=== PATIENT | male | born 1965 | race Caucasian/White ===

== ENCOUNTER 2019-02-27 07:52 | Inpatient (IN) ==
[~2019-02-27 07:52] MED LIST: Bacitracin 50,000 UNIT, Polymyxin B Sulfate 500,000 UNIT, Sodium Chloride IRRigation 1,... IR ONE
--- NOTE | 2019-02-27 08:32 | Anesthesia Evaluation PreOp ---
Date of Encounter: 02/27/19 Time of Encounter: 08:30 - Past History Planned Operation: PLIF L4-S1 Cardiac History: HTN, Hyperlipidemia, Cardiac Surgery (PFO CLOSURE POST CVS) Pulmonary History: Denies Any Significant HX PAPER FOLDER History: CVA Other Medical History: Diabetes Type II, GERD, Other (OBESITY) Anesthesia History: No Prior Anesthetic Complications, Past Anesthesia Alcohol Use: none Drug use: none Medications and Allergies Acetaminophen [Tylenol] 1,000 mg PO Q6HR PRN #90 tablet 01/08/18 [Rx] Aspirin [Adult Aspirin Regimen] 81 mg PO DAILY 01/08/18 [History] Atorvastatin Calcium [Lipitor] DAILY 01/08/18 [History] Glimepiride [Amaryl] 8 mg DAILY 01/08/18 [History] Levothyroxine Sodium [Levoxyl] 75 mcg PO DAILY 01/08/18 [History] Metformin HCl [Metformin ER Gastric] BID 01/08/18 [History] Omeprazole [PriLOSEC] DAILY 01/08/18 [History] hydroCHLOROthiazide [Hydrochlorothiazide] 25 mg PO DAILY 01/08/18 [History] Allergy/AdvReac Type Severity Reaction Status Date / Time Penicillins Allergy Hives Verified 01/08/18 07:55 - Meds/Allergy Pre-op Review Medications Reviewed: Yes Allergies Reviewed: Yes Beta Blockers on Current Med List: No Anesthesia Results - Labs Laboratory Tests 02/20/19 02/20/19 02/20/19 10:30 10:30 10:30 Hgb 13.4 Plt Count 238 Potassium 4.2 Creatinine 0.69 L Est GFR (Non-Af Amer) > 60 Hemoglobin A1c 7.3 H Anesthesia Exam Vital Signs/O2 Sat/Glucose, Most Recent Temp Pulse Resp BP Pulse Ox 98.7 F 95 18 137/86 96 02/27/19 08:37 02/27/19 08:37 02/27/19 08:37 02/27/19 08:37 02/27/19 08:37 Blood Glucose* 142 Weight: 113 KG - BMI 32 NPO (# of Hours): 8 - HEENT Mallampati: II Teeth: Normal - PAPER FOLDER PAPER FOLDER Motor: Deficit RLE (ARTURO EAKNESS TOE FLEXIN, EXTENSION. L>R), Deficit LLE - Cardiac Rhythm: Regular - Pulmonary Breath Sounds: bilateral Clear Anesthesia Assess/Plan ASA Score: 3 Anesthetic Plan: General Monitoring Plan: Standard Monitors Recovery Plan: PACU
[2019-02-27] MEDS ORDERED: Clindamycin 900 MG/50 ML 900 MG/50 ML IV.SOLN IVPB ONE (08:33)
[2019-02-27] MEDS ORDERED: Albuterol 2.5 MG/3 ML NEBULIZER IH ONE (08:33)
[2019-02-27] MEDS ORDERED: Gabapentin 300 MG CAPSULE PO ONE (08:35)
[2019-02-27] MEDS ORDERED: Ipratropium/Albuterol Neb 3 ML IH PRN (08:35)
[2019-02-27] MEDS ORDERED: traMADol 50 MG TABLET PO ONE (08:35)
[2019-02-27] MEDS ORDERED: Acetaminophen IV 1,000 MG/100 ML INFUS..BTL IVPB ONE (08:35)
[2019-02-27] MEDS: Ringers Solution, Lactated 1,000 ML IVC SCH ×2 (09:01→17:07)
[2019-02-27] MEDS ORDERED: Ondansetron 4 MG/2 ML VIAL ONE (10:13)
[2019-02-27] MEDS ORDERED: Dexamethasone 4 MG/ML VIAL ONE (10:13)
[2019-02-27] MEDS ORDERED: *HR* Midazolam HCl 2 MG/2 ML VIAL ONE (10:13)
[2019-02-27] MEDS ORDERED: *HR* FentaNYL (PF) 100 MCG/2 ML VIAL ONE (10:13)
[2019-02-27] MEDS ORDERED: *HR* Propofol 200 MG/20 ML VIAL IVP ONE (10:13)
[2019-02-27] MEDS ORDERED: *HR* Rocuronium Bromide 50 MG/5 ML VIAL ONE (10:13)
[2019-02-27] MEDS ORDERED: Lidocaine -MPF 2% 2 ML VIAL ONE (10:13)
[2019-02-27] MEDS ORDERED: *HR* Succinylcholine 200 MG/10 ML VIAL IVP ONE (10:13)
[2019-02-27] MEDS ORDERED: Lidocaine HCL 4 ML Topical Solution (Laryng-O-Jet Kit Sterile Pak) TP ONE ×2 (10:16→15:11)
[2019-02-27] MEDS ORDERED: *HR* Remifentanil 1 MG VIAL IVP ONE ×2 (10:26→15:04)
--- NOTE | 2019-02-27 11:33 | History & Physical Report ---
Date of Encounter: 02/27/19 Time of Encounter: 11:32 24 Hour HP Update - Instructions Instructions: If the History and Physical is less than 30 days old and was completed prior to A.M. admission and or procedure and has NOT been updated on calendar day of procedure please complete this update prior to performing procedure. - Update Patient reports changes in Medical Condition: No Changes in examination, assessment, or condition: No Changes in Medication: No Preop tests/diagnostics Reviewed: Yes Pre-Op MRSA Screen: Negative Surgery Remains Indicated: Yes Consent for Planned Operative Procedure(s) Verified: Yes - Pre-Operative Checklist Preoperative Checklist Indicated: No Prophylactic Antibiotic Ordered: Yes Home Medications Include Beta Korin: No Beta Korin Taken Today (Day of Surgery): No Beta Korin Taken Yesterday (Day Prior to Surgery): No Is VTE Prophylaxis Indicated?: Yes
[2019-02-27] MEDS ORDERED: Neostigmine Methylsulfate 3 MG/3 ML SYRINGE ONE (14:11)
[2019-02-27] MEDS ORDERED: Ketorolac 30 MG/ML VIAL ONE (16:15)
[2019-02-27] MEDS ORDERED: *HR* HYDROMORPHONE 2 MG/ML VIAL ONE (16:17)
--- NOTE | 2019-02-27 16:20 | Orthopedic Operative Note ---
Date of procedure: 02/27/19 Pre-op diagnosis: Spondylolisthesis, lumbar stenosis, lumbar radiculopathy Post-op diagnosis: same Operation/Findings: Posterior lumbar interbody fusion L4-S1: The patient successfully underwent general endotracheal anesthesia. The patient was given antibiotics prior to the start of the procedure. Compression boots and stockings were used for deep vein thrombosis prophylaxis. A Hidalgo catheter was placed. Leads for neuro monitoring were placed on the upper and lower extremities. This included the cranium. The neuro monitoring personnel confirmed there were satisfactory readings prior to the start of the procedure. The patient was turned prone on the Scott table. The back was prepped and draped in the usual sterile fashion. An incision was was marked and centered over the involved L4-S1 levels in the mid line. The incision was deepened through the lumbar fascia. Bovie cautery and Tejeda elevators were used to reflect the paraspinal musculature at the lateral extent of the transverse processes of the involved L4, L5, and S1 levels. Snehal clamps were placed over the L4 and L5 spinous processes. An intraoperative lateral fluoroscopy graft was obtained. A conversation was held between the surgeon and radiologist and both confirmed we had the correct operative levels. We then placed pedicle screws in standard fashion with the aid of fluoroscopy and anatomic landmarks. Briefly a starter awl was used. A gearshift was subsequently used to enter the pilot plant technician hole via a transpedicular route into the vertebral body. The pilot plant technician hole was tapped with an undersized instrument, and subsequently three 6.5 x 40 mm pedicle screws were placed unilaterally on the left side at the indicated L4-S1 levels. We omitted screws on the right side due to concerns of screw placement. The screws were tested with the aid of the neurologic monitoring staff via pedicle screw stimulation. All reading suggested there was no significant cortical wall breech. The screws were also evaluated fluoro- graphically and appeared to be in satisfactory position. We then turned our attention to the decompression portion of the procedure. We removed the supraspinous and interspinous ligaments and subsequently the insertion of the ligamentum flavum on the undersurface of the proximal L5 lamina was dislodged with a curette. We then removed the ligamentum flavum as well as undercut the L5-S1 facets at this level to decompress the lateral recesses. We also performed a L5 laminectomy. We moved proximally to the L4-5 level and again removed the supraspinous and interspinous ligaments, removed hypertrophied ligamentum flavum, undercut the L4-5 facets to decompress the lateral recesses, did partial medial facetectomies at L4-5, and performed a L4 laminectomy. After the decompression, which was over and above that which was required to place the interbody grafts, the foramen and traversing roots at the L4-5 and L5-S1 levels were found to be free and patent. We also took part of the medial facets in order to aid in the decompression. We then protected the neural elements including the thecal sac and traversing nerve root on the left with a dural retractor at L5-S1. We made an annulotomy into the L5-S1 disc space and then removed entire disc material using Pituitary instruments. We trialed various size grafts after the endplates were prepared for graft insertion. An 8 x 26 enter body graft fit well within the L5-S1 disc space. We then turned our attention to the L4-5 level and again protected the neural elements with a dural retractor, made an annulotomy into the L4-5 disc space, removed entire disc material at L4-5, and trialed a graft in which a 10 x 26 mm graft fit well at L4-5. We obtained some bone from the left posterior superior iliac spine through us a separate incision and combined with this with the bone which we had saved from the laminectomy of L4 and L5 portion of the procedure. This autograft bone was first placed in the anterior portion of the L5-S1 disc space and additional bone was placed within the interbody graft spacer. We then placed the interbody graft spacer obliquely across the L5-S1 disc space towards the midline while protecting the neural elements with a root retractor. When the graft was found to be in satisfactory position the band top maker was removed. We then repeated this interbody graft insertion procedure at L4-5 levels, protecting the neural elements, packing the anterior portion of the L4-5 disc space with autograft bone, and subsequently placing and interbody graft across the L4-5 disc space which was packed with autograft bone. We then copiously i rrigated the wound. We then decorticated the L4 and L5 transverse processes as well as the proximal portion of the sacrum as well as the L4-5 and L5-S1 facet joints of the involved L4-S1 levels to aid in the posterolateral fusion. We placed autograft bone in the lateral gutters over these L4-S1 regions. We then placed a mckayla within the screw heads of the involved L4, L5, and S1 levels and first locked the distal screws and then subsequently locked the proximal screws so as to improve and reduce the spondylolisthesis previously seen. We then closed the wound in layers with 1 Vicryl for the fascia, 2-0 Vicryl. Subcutaneous tissue, and Dermabond was used for skin closure. Sterile dressings were placed over the wound. The patient was turned supine on a hospital bed and extubated. All sponge instruments and needle counts were correct at the end of the procedure. The patient tolerated the procedure well without complications. Anesthesia: GETTony Surgeon: Jovon Freire Jr Was there an physician assistant present: No Estimated blood loss (cc): 100 Specimen: None Condition: stable Disposition: PACU
[2019-02-27] MEDS: *HR* HYDROmorphone (PF) 1 MG/ML SYRINGE IVP PRN ×2 (16:51→17:06)
[2019-02-27] MEDS ORDERED: *HR* Promethazine 25 MG/ML VIAL ONE (17:01)
[2019-02-27] MEDS ORDERED: *HR* Promethazine 25 MG/ML VIAL IVP PRN (17:02)
[2019-02-27] MEDS ORDERED: *HR* Labetalol 20 MG/4 ML SYRINGE IVP PRN (17:03)
[2019-02-27] MEDS ORDERED: *HR* Labetalol 20 MG/4 ML SYRINGE IVP ONE (17:05)
[2019-02-27] MEDS ORDERED: CloNIDine Patch 0.1 MG PATCH (WEEKLY) TD SCH (17:15)
--- NOTE | 2019-02-27 17:39 | Anesthesia Evaluation Post Op ---
Date of Encounter: 02/27/19 Time of Encounter: 17:38 - Vital Signs Vital Signs: Vital Signs/O2 Sat, Most Current Temp Pulse Resp BP Pulse Ox 98.1 F 90 10 147/86 95 02/27/19 17:05 02/27/19 17:25 02/27/19 17:25 02/27/19 17:25 02/27/19 17:25 - Lungs Lungs: Clear Ascult./Percussion - Airway Airway: Non-obstructed - Cardiovascular Regular Rate - Mental Status Mental Status: Asleep with brisk response to light stimulation - Pain Pain Scale: 5 Pain Scale used: Numeric (1 - 10) - Nausea Vomiting Nausea Vomiting: Not Present - Hydration Hydration: NPO, Hidalgo catheter - Discharge PostOp Status: Transfer Patient to floor
[2019-02-27] MEDS ORDERED: Naloxone 0.4 MG/ML INJ IVP PRN (18:15)
[2019-02-27] MEDS ORDERED: Acetaminophen 325 MG TABLET PO PRN (18:15)
[2019-02-27] MEDS ORDERED: *HR* HYDROcodone/Acet 5/325 mg TABLET PO PRN (18:15)
[2019-02-27] MEDS ORDERED: Ringers Solution, Lactated 1,000 ML IVC SCH (18:15)
[2019-02-27] MEDS: *HR* Metformin 500 MG TABLET PO SCH (20:34)
[2019-02-27] MEDS: *HR* OxyCODONE Immed Rel 5 MG TABLET PO PRN (20:34)
[2019-02-27] MEDS: *HR* Glimepiride 4 MG TABLET PO SCH (20:35)
[2019-02-27] MEDS: Clindamycin 600 MG/50 ML 600 MG/50 ML IV.SOLN IVPB SCH (23:52)
[2019-02-28] MEDS: *HR* OxyCODONE Immed Rel 5 MG TABLET PO PRN ×4 (04:15→22:51)
[2019-02-28] MEDS: Clindamycin 600 MG/50 ML 600 MG/50 ML IV.SOLN IVPB SCH (08:42)
[2019-02-28] MEDS: *HR* Metformin 500 MG TABLET PO SCH ×2 (09:11→20:29)
[2019-02-28] MEDS: hydroCHLOROthiazide 25 MG TABLET PO SCH (09:12)
[2019-02-28] MEDS: *HR* Glimepiride 4 MG TABLET PO SCH ×2 (09:12→20:29)
[2019-02-28] MEDS: Aspirin Enteric Coated 81 MG Tablet PO SCH (09:12)
[2019-02-28] MEDS: tiZANidine 4 MG TABLET PO PRN ×2 (12:23→20:29)
[2019-02-28] MEDS: Ondansetron 4 MG/2 ML VIAL IVP PRN (19:18)
[2019-03-01] MEDS: hydroCHLOROthiazide 25 MG TABLET PO SCH (07:41)
[2019-03-01] MEDS: *HR* OxyCODONE Immed Rel 5 MG TABLET PO PRN ×2 (07:41→15:40)
[2019-03-01] MEDS: *HR* Metformin 500 MG TABLET PO SCH (07:41)
[2019-03-01] MEDS: Aspirin Enteric Coated 81 MG Tablet PO SCH (07:42)
[2019-03-01] MEDS: *HR* Glimepiride 4 MG TABLET PO SCH (07:42)
[2019-03-01] MEDS: Ondansetron 4 MG/2 ML VIAL IVP PRN (08:45)
[2019-03-01 11:53] VITALS: BP 137/91
--- NOTE | 2019-03-01 13:12 | Discharge Summary ---
Date of Encounter: 03/01/19 Time of Encounter: 12:30 - Discharge Diagnosis (1) Status post lumbar spinal fusion Priority: Primary Status: Acute (2) Lumbar radiculopathy Priority: Primary Status: Chronic (3) Lumbar stenosis Priority: Primary Status: Chronic Qualifiers: Neurogenic claudication status: unspecified Qualified Code(s): M48.061 - Spinal stenosis, lumbar region without neurogenic claudication (4) Spondylolisthesis Priority: Primary Status: Chronic Qualifiers: Spinal region: unspecified Qualified Code(s): M43.10 - Spondylolisthesis, site unspecified - Hospital Course Hospital course: Mr. Garcias is a 53 year old male Posterior lumbar interbody fusion L4-S1 [Spondylolisthesis, lumbar stenosis, lumbar radiculopathy] 02/27/19 Patient seen at bedside. A&Ox3 Dressing and incision c/d/i No calf tenderness, erythema, or warmth. Neurovascularly intact b/l LE. Labwork, vitals, and medications reviewed. Pain control: Adequate Participating in therapy. All questions and concerns addressed. Educated on use of incentive spirometer, ambulation, and hydration. Patient educated on post-operative restrictions and care. Addressed: see above. Patient course and disposition discussed with Dr. Freire D/C plan: home today - Time Spent with Patient Total time spent providing and/or coordinating discharge services: - Discharge Medications Prescriptions: New Docusate Sodium [Colace] 100 mg PO BID 5 Days #10 capsule OxyCODONE Immed Rel [Roxicodone 5 MG] 5 mg PO Q6HR PRN 5 Days #20 tablet PRN Reason: Severe Pain Continued Levothyroxine Sodium 75 mcg PO QAM Atorvastatin [Lipitor] 40 mg PO HS Metformin HCl [Metformin HCl ER] 1,000 mg PO BID hydroCHLOROthiazide [Hydrochlorothiazide] 25 mg PO QAM Glimepiride [Amaryl] 4 mg PO BID Gabapentin 600 - 900 mg PO Q8H Aspirin [Lo-Dose Aspirin EC] 81 mg PO DAILY Home Medications: Aspirin [Lo-Dose Aspirin EC] 81 mg PO DAILY 02/27/19 [History] Atorvastatin [Lipitor] 40 mg PO HS 02/27/19 [History] Gabapentin 600 - 900 mg PO Q8H 02/27/19 [History] Glimepiride [Amaryl] 4 mg PO BID 02/27/19 [History] Levothyroxine Sodium 75 mcg PO QAM 02/27/19 [History] Metformin HCl [Metformin HCl ER] 1,000 mg PO BID 02/27/19 [History] hydroCHLOROthiazide [Hydrochlorothiazide] 25 mg PO QAM 02/27/19 [History] Docusate Sodium [Colace] 100 mg PO BID 5 Days #10 capsule 02/28/19 [Rx] OxyCODONE Immed Rel [Roxicodone 5 MG] 5 mg PO Q6HR PRN 5 Days #20 tablet 02/28/19 [Rx] Allergies/Adverse Reactions: Allergy/AdvReac Type Severity Reaction Status Date / Time Penicillins Allergy See Verified 02/27/19 09:01 Comments Date of admission: 02/27/19 18:23 Primary care physician: Ifrah Muhammad MD Consults: 02/27/19 18:15 Consult to Occupational Therapy [CONS] Routine Comment: Evaluate, develop and implement POC Reason for Consult: Postoperative rehabilitation Does patient have active BEDREST order?: No Is patient medically & hemodynamically stable?: Yes Patient assessed for mobility or mobilized this visit?: No Consult to Physical Therapy [CONS] Routine Comment: Evaluate, develop and implement POC Reason for Consult: Postoperative rehabilitation Does patient have active BEDREST order?: No Is patient medically & hemodynamically stable?: Yes Patient assessed for mobility or mobilized this visit?: No Consult to Spine Navigator [CONS] [CONS] Routine 02/27/19 19:10 Consult to Pastoral Services [CONS] Routine Comment: Discharging clinician: Jovon Freire Jr Anticipated date of discharge: 03/01/19 - VTE Documentation of Mechanical Device: Graduated compression elastic hosiery - Impressions ITS Impressions Fluoroscopy 02/27/19 13:00 IMPRESSION: Please see operative report for further details. D/ / Gordon Roche MD / Gordon Roche MD Interpreting Provider: Gordon Roche MD Lumbar Spine X-Ray 02/27/19 13:00 IMPRESSION: Please see operative report for further details. D/ / Gordon Roche MD / Gordon Roche MD Interpreting Provider: Gordon Roche MD Lumbar Spine X-Ray 03/01/19 09:20 IMPRESSION: No acute abnormalities. Interval surgical intervention to lower lumbar spine as above. No definite evidence for hardware complication. Multilevel grade 1 spondylolisthesis to the lower lumbar spine, improved. D/ / 03/01/2019 08:45:48 Robert Najera MD / candy Interpreting Provider: Robert Najera MD - Patient Status Disposition: Home Health Service Condition: Good Functional capacity at discharge: uses cane/walker Overall status at discharge: patient is progressing back to baseline - Discharge Instructions Follow Up With: Ifrah Muhammad MD [Primary Care Provider] - Additional Instructions: Discharge Instructions: Lumbar Please call [facility] ([phone]), your Primary Care Physician, or report to the ER if you have any of the following symptoms: Fever greater that 101.5, increased pain/redness/drainage/odor for your incision site or any other concerning symptoms. ACTIVITY * May Shower * No Tub Baths * No lifting greater than 10 pounds * No Smoking * No Swimming * No off Ground Activities (Running, Climbing, Ladders, Horseback Riding) * No Driving * Wear Back Brace when up walking if lumbar fusion done * Incentive Spirometer 10 times an hour MEDICATIONS: Upon discharge resume your home medications. Take all the medications as prescribed. Take a stool softener if taking narcotic pain medications. Stool softeners are only effective if you drink enough fluids. Drink 6-8 glass of water or fluids a day, unless this is not allowed for another health problem. Despite using stool softeners, if you haven't had a bowel movement in 3 days, please switch to a gentle laxative. Gentle laxatives are sold over the counter. You should have a bowel movement within 24 hours, if not call the office. You will be discharged from the hospital with a prescription for pain medication. You are encouraged to decrease the use of narcotic pain medication as tolerated. Should you require a refill, please call the office. It is best to call 48-72 hours in advance of needing a prescription refill so you don't run out of medication. WOUND CARE: Remove Dressing Tomorrow. Leave incision open to air. Pat dry when you get out of the shower. FOLLOW-UP: Please follow up with your surgeon in the orthopedic clinic in 2 weeks from the day of surgery. References: [employer] (www.[email or web address]) - Diet and Activity Activity: as per physical therapy Diet: advance to your usual diet
--- NOTE | 2019-03-02 09:06 | Orthopedics Progress Note ---
Date of Encounter: 02/28/19 Time of Encounter: 12:30 - Assessment and Plan (1) Spondylolisthesis Status: Chronic Qualifiers: Spinal region: unspecified Qualified Code(s): M43.10 - Spondylolisthesis, site unspecified (2) Lumbar stenosis Status: Chronic Qualifiers: Neurogenic claudication status: unspecified Qualified Code(s): M48.061 - Spinal stenosis, lumbar region without neurogenic claudication (3) Lumbar radiculopathy Status: Chronic (4) Status post lumbar spinal fusion Status: Acute Subjective Principal diagnosis: s/p PLIF Interval history: POD#1 s/p Posterior lumbar interbody fusion L4-S1 [Spondylolisthesis, lumbar stenosis, lumbar radiculopathy] 02/27/19 Patient seen at bedside. A&Ox3 Dressing and incision c/d/i No calf tenderness, erythema, or warmth. Neurovascularly intact b/l LE. Labwork, vitals, and medications reviewed. Pain control: Adequate Participating in therapy. All questions and concerns addressed. Educated on use of incentive spirometer, ambulation, and hydration. Patient educated on post-operative restrictions and care. Addressed: see above. Patient course and disposition discussed with Dr. Freire D/C plan: Continue postoperative care Objective Vital signs: Vital Signs Temp Pulse Resp BP Pulse Ox 03/01/19 11:30 98.1 F 101 16 137/91 96 - Labs Labs: Abnormal lab results POC Glucose 142 mg/dL (70-99) H 02/27/19 08:30 Consult Discharge Plan - Plan Additional Instructions: Discharge Instructions: Lumbar Please call [facility] ([phone]), your Primary Care Physician, or report to the ER if you have any of the following symptoms: Fever greater that 101.5, increased pain/redness/drainage/odor for your incision site or any other concerning symptoms. ACTIVITY * May Shower * No Tub Baths * No lifting greater than 10 pounds * No Smoking * No Swimming * No off Ground Activities (Running, Climbing, Ladders, Horseback Riding) * No Driving * Wear Back Brace when up walking if lumbar fusion done * Incentive Spirometer 10 times an hour MEDICATIONS: Upon discharge resume your home medications. Take all the medications as prescribed. Take a stool softener if taking narcotic pain medications. Stool softeners are only effective if you drink enough fluids. Drink 6-8 glass of water or fluids a day, unless this is not allowed for another health problem. Despite using stool softeners, if you haven't had a bowel movement in 3 days, please switch to a gentle laxative. Gentle laxatives are sold over the counter. You should have a bowel movement within 24 hours, if not call the office. You will be discharged from the hospital with a prescription for pain medication. You are encouraged to decrease the use of narcotic pain medication as tolerated. Should you require a refill, please call the office. It is best to call 48-72 hours in advance of needing a prescription refill so you don't run out of medication. WOUND CARE: Remove Dressing Tomorrow. Leave incision open to air. Pat dry when you get out of the shower. FOLLOW-UP: Please follow up with your surgeon in the orthopedic clinic in 2 weeks from the day of surgery. References: [employer] (www.[email or web address].org) Referrals: Ifrah Muhammad MD [Primary Care Provider] - Prescriptions: Docusate Sodium [Colace] 100 mg PO BID 5 Days #10 capsule OxyCODONE Immed Rel [Roxicodone 5 MG] 5 mg PO Q6HR PRN 5 Days #20 tablet PRN Reason: Severe Pain
== END 2019-03-01 16:40 | disposition home health service (06) | DRG 455 ==
LOC: SAMDAY 07:52 → 3NENU 18:23
PROVIDERS: ADMIT Orthopaedic Surgery Orthopaedic Surgery of the Spine; ATTEND Orthopaedic Surgery Orthopaedic Surgery of the Spine

== ENCOUNTER 2019-04-17 12:15 | Inpatient (IN) ==
[2019-04-17] MEDS ORDERED: Ketorolac 15 MG/ML VIAL IVP ONE (12:42)
[2019-04-17] MEDS ORDERED: Morphine Sulfate 2 MG/ML SYRINGE IVP PRN (12:42)
[2019-04-17] MEDS ORDERED: Ketamine *HR* 20 MG in 0.9 % Sodium Chloride 100 ML IVPB ONE (12:44)
[2019-04-17 17:32] LABS: Basophils # 0.1 K/mcL (0.0-0.2); Basophils % 0.6 %; Eosinophils # 0.2 K/mcL (0.0-0.6); Eosinophils % 1.7 %; Hemoglobin 13.3 g/dL (12.9-16.9); Immature Granulocytes % 0.8 % (0-4); Lymphocytes % 22.6 %; Mean Corpuscular HGB Conc 33.3 g/dL (31.6-35.5); Mean Corpuscular Hemoglobin 28.1 pg (28.0-33.3); Mean Corpuscular Volume 84.4 fL (83.0-100.0); Mean Platelet Volume 8.8 fL (9.4-12.4); Monocytes # 1.2 K/mcL (0.0-1.3); Monocytes % 8.8 %; Neutrophils # 8.6 K/mcL (1.6-8.9); Platelet Count 354 K/mcL (140-400); Red Blood Count 4.74 M/mcL (4.19-5.50); Red Cell Distribution Width 12.2 % (11.5-14.5); Segmented Neutrophils % 65.5 %; White Blood Count 13.1 K/mcL (4.3-11.1)
[2019-04-17 17:38] LABS: INR 1.3; Prothrombin Time 14.5 Seconds (9.4-12.1)
[2019-04-17 17:40] LABS: Activated Partial Thrombo Time 40.3 Seconds (26.0-36.0)
[2019-04-17] MEDS ORDERED: D5% in Water 1,000 ML IVC PRN (17:47)
[2019-04-17] MEDS ORDERED: Dextrose Gel 15 GM/37.5 ML TUBE PO PRN ×2 (17:47)
[2019-04-17] MEDS ORDERED: *HR* Dextrose 50 % in Water (Syg) 50 ML SYRINGE IVP PRN (17:47)
[2019-04-17 17:49] LABS: BUN/Creatinine Ratio 21 (6-26); Blood Urea Nitrogen 17 mg/dL (6-20); Carbon Dioxide 27 mEq/L (23-29); Chloride 98 mEq/L (98-107); Glucose 76 mg/dL (70-105); Osmolality,Calculated 286 (280-300); Potassium 4.2 mEq/L (3.5-5.1); Sodium 138 mEq/L (136-145); eGFR For African Americans > 60 (> 60); eGFR For Non-African Americans > 60 (> 60)
[2019-04-17] MEDS: Acetaminophen IV 1,000 MG/100 ML INFUS..BTL IVPB SCH (18:41)
[2019-04-17] MEDS ORDERED: Insulin LISPRO 300 UNITS/3 ML VIAL SQ SCH (21:00)
[2019-04-17] MEDS: *HR* OxyCODONE Immed Rel 5 MG TABLET PO PRN (21:59)
[2019-04-18] MEDS: Acetaminophen IV 1,000 MG/100 ML INFUS..BTL IVPB SCH ×3 (02:02→16:39)
[2019-04-18] MEDS: *HR* OxyCODONE Immed Rel 5 MG TABLET PO PRN ×2 (10:18→21:02)
[2019-04-18] MEDS: Insulin LISPRO 300 UNITS/3 ML VIAL SQ SCH ×3 (11:33→16:59)
[2019-04-18] MEDS ORDERED: Ondansetron 4 MG/2 ML VIAL IVP PRN (12:28)
[2019-04-18] MEDS ORDERED: *HR* Midazolam HCl 2 MG/2 ML VIAL ONE (16:44)
[2019-04-18] MEDS ORDERED: Dexamethasone 4 MG/ML VIAL ONE (16:44)
[2019-04-18] MEDS ORDERED: *HR* Propofol 200 MG/20 ML VIAL IVP ONE (16:44)
[2019-04-18] MEDS ORDERED: Ondansetron 4 MG/2 ML VIAL ONE (16:44)
[2019-04-18] MEDS ORDERED: *HR* FentaNYL (PF) 100 MCG/2 ML VIAL ONE (16:44)
[2019-04-18] MEDS ORDERED: Lidocaine -MPF 2% 2 ML VIAL ONE (16:44)
[2019-04-18] MEDS ORDERED: Propofol 500 MG/50 ML INFUS..BTL ONE ×4 (16:45→19:52)
[2019-04-18] MEDS ORDERED: *HR* Rocuronium Bromide 50 MG/5 ML VIAL ONE (16:46)
[2019-04-18] MEDS ORDERED: *HR* Succinylcholine 200 MG/10 ML VIAL IVP ONE (16:46)
[2019-04-18] MEDS ORDERED: Lidocaine -MPF 4% 5 ML AMPUL ONE (17:00)
[2019-04-18] MEDS ORDERED: Bacitracin 50,000 UNIT, Polymyxin B Sulfate 500,000 UNIT, Sodium Chloride IRRigation 1,... IR ONE (17:00)
[2019-04-18] MEDS ORDERED: *HR* Remifentanil 1 MG VIAL IVP ONE ×2 (17:03→19:30)
[2019-04-18] MEDS ORDERED: Acetaminophen IV 0 MG/0 ML INFUS..BTL ONE (17:18)
[2019-04-18] MEDS ORDERED: Clindamycin 900 MG/50 ML 900 MG/50 ML IV.SOLN IVPB ONE (17:29)
[2019-04-18] MEDS ORDERED: *HR* HYDROMORPHONE 2 MG/ML VIAL ONE (17:39)
[2019-04-18] MEDS ORDERED: *HR* Promethazine 25 MG/ML VIAL IVP PRN (18:50)
[2019-04-18] MEDS ORDERED: Ondansetron 4 MG/2 ML VIAL IVP ONE (18:50)
[2019-04-18] MEDS ORDERED: *HR* HYDROmorphone (PF) 1 MG/ML SYRINGE IVP PRN (18:50)
[2019-04-18] MEDS ORDERED: *HR* Labetalol 20 MG/4 ML SYRINGE IVP PRN (18:50)
[2019-04-18] MEDS ORDERED: *HR* OxyCODONE Immed Rel 5 MG TABLET PO PRN (21:39)
[2019-04-18] MEDS ORDERED: Acetaminophen 325 MG TABLET PO PRN (21:39)
[2019-04-18] MEDS ORDERED: Naloxone 0.4 MG/ML INJ IVP PRN (21:39)
[2019-04-18] MEDS ORDERED: Ringers Solution, Lactated 1,000 ML IVC SCH (21:39)
[2019-04-18] MEDS: *HR* Metformin 500 MG TABLET PO SCH (22:19)
[2019-04-18] MEDS: *HR* HYDROcodone/Acet 5/325 mg TABLET PO PRN (22:19)
[2019-04-18] MEDS: Gabapentin 300 MG CAPSULE PO SCH (22:19)
[2019-04-18] MEDS: *HR* Glimepiride 4 MG TABLET PO SCH (22:20)
[2019-04-19] MEDS: Clindamycin 600 MG/50 ML 600 MG/50 ML IV.SOLN IVPB SCH ×2 (00:03→07:33)
[2019-04-19] MEDS: *HR* OxyCODONE Immed Rel 5 MG TABLET PO PRN ×2 (03:45→15:45)
[2019-04-19] MEDS: Gabapentin 300 MG CAPSULE PO SCH ×2 (06:09→15:45)
[2019-04-19] MEDS: *HR* Metformin 500 MG TABLET PO SCH (07:32)
[2019-04-19] MEDS: *HR* HYDROcodone/Acet 5/325 mg TABLET PO PRN (07:32)
[2019-04-19] MEDS: *HR* Glimepiride 4 MG TABLET PO SCH (07:32)
[2019-04-19 07:34] LABS: Basophils % 0.3 %; Eosinophils % 0.2 %; Hematocrit 37.1 % (37.5-50.1); Hemoglobin 12.1 g/dL (12.9-16.9); Immature Granulocytes % 0.9 % (0-4); Lymphocytes # 1.7 K/mcL (0.6-4.6); Lymphocytes % 11.5 %; Mean Corpuscular HGB Conc 32.6 g/dL (31.6-35.5); Mean Corpuscular Hemoglobin 27.8 pg (28.0-33.3); Mean Corpuscular Volume 85.1 fL (83.0-100.0); Mean Platelet Volume 8.6 fL (9.4-12.4); Monocytes # 1.1 K/mcL (0.0-1.3); Monocytes % 7.3 %; Neutrophils # 11.7 K/mcL (1.6-8.9); Platelet Count 317 K/mcL (140-400); Red Blood Count 4.36 M/mcL (4.19-5.50); Red Cell Distribution Width 12.3 % (11.5-14.5); Segmented Neutrophils % 79.8 %; White Blood Count 14.6 K/mcL (4.3-11.1)
[2019-04-19] MEDS: Insulin LISPRO 300 UNITS/3 ML VIAL SQ SCH ×2 (07:39→15:15)
[2019-04-19 07:55] LABS: BUN/Creatinine Ratio 24 (6-26); Blood Urea Nitrogen 16 mg/dL (6-20); Calcium 9.6 mg/dL (8.6-10.3); Carbon Dioxide 29 mEq/L (23-29); Chloride 95 mEq/L (98-107); Glucose 153 mg/dL (70-105); Osmolality,Calculated 282 (280-300); Potassium 4.9 mEq/L (3.5-5.1); Sodium 134 mEq/L (136-145); eGFR For African Americans > 60 (> 60); eGFR For Non-African Americans > 60 (> 60)
[2019-04-19] MEDS ORDERED: Dextrose Gel 15 GM/37.5 ML TUBE PO PRN ×2 (07:57)
[2019-04-19] MEDS ORDERED: D5% in Water 1,000 ML IVC PRN (07:57)
[2019-04-19] MEDS ORDERED: *HR* Dextrose 50 % in Water (Syg) 50 ML SYRINGE IVP PRN (07:57)
[2019-04-19] MEDS ORDERED: Aspirin Enteric Coated 81 MG Tablet PO SCH (09:00)
[2019-04-19] MEDS ORDERED: hydroCHLOROthiazide 25 MG TABLET PO SCH (09:00)
[2019-04-19] MEDS ORDERED: Gabapentin 300 MG CAPSULE PO SCH (10:00)
[2019-04-19 12:15] VITALS: BP 122/84
[2019-04-19] MEDS ORDERED: Insulin LISPRO 300 UNITS/3 ML VIAL SQ SCH (21:00)
== END 2019-04-19 16:25 | disposition home health service (06) | DRG 460 ==
LOC: EMEROOARM 12:15 → 3NENU 12:15 → SUATTDRO 17:33
PROVIDERS: ADMIT Student in an Organized Health Care Education/Training Program; ATTEND Orthopaedic Surgery Orthopaedic Surgery of the Spine

== ENCOUNTER 2019-04-24 14:53 | Observation (INO) ==
[2019-04-24] MEDS ORDERED: Ondansetron 4 MG/2 ML VIAL IVP ONE (14:57)
[2019-04-24] MEDS ORDERED: *HR* HYDROmorphone (PF) 1 MG/ML SYRINGE IVP ONE ×2 (14:57→18:20)
[2019-04-24] MEDS ORDERED: Gadolinium Contrast Agent (WT Based) IV PRN (16:16)
[2019-04-24 19:52] LABS: Basophils # 0.1 K/mcL (0.0-0.2); Basophils % 0.5 %; Eosinophils # 0.2 K/mcL (0.0-0.6); Eosinophils % 1.9 %; Hematocrit 36.6 % (37.5-50.1); Hemoglobin 11.7 g/dL (12.9-16.9); Immature Granulocytes % 0.7 % (0-4); Lymphocytes # 2.4 K/mcL (0.6-4.6); Lymphocytes % 21.1 %; Mean Corpuscular Hemoglobin 27.3 pg (28.0-33.3); Mean Corpuscular Volume 85.3 fL (83.0-100.0); Mean Platelet Volume 8.7 fL (9.4-12.4); Neutrophils # 7.5 K/mcL (1.6-8.9); Platelet Count 311 K/mcL (140-400); Red Blood Count 4.29 M/mcL (4.19-5.50); Red Cell Distribution Width 12.4 % (11.5-14.5); Segmented Neutrophils % 66.8 %; White Blood Count 11.3 K/mcL (4.3-11.1)
[2019-04-24 20:13] LABS: BUN/Creatinine Ratio 27 (6-26); Blood Urea Nitrogen 13 mg/dL (6-20); Calcium 9.5 mg/dL (8.6-10.3); Carbon Dioxide 27 mEq/L (23-29); Chloride 98 mEq/L (98-107); Glucose 92 mg/dL (70-105); Osmolality,Calculated 284 (280-300); Potassium 3.7 mEq/L (3.5-5.1); Sodium 137 mEq/L (136-145); eGFR For African Americans > 60 (> 60); eGFR For Non-African Americans > 60 (> 60)
[2019-04-25] MEDS: *HR* OxyCODONE Immed Rel 5 MG TABLET PO PRN ×3 (04:49→20:10)
[2019-04-25] MEDS ORDERED: Ondansetron 4 MG/2 ML VIAL IVP PRN (05:13)
[2019-04-25] MEDS: Simethicone 80 MG TAB.CHEW PO PRN (06:40)
[2019-04-25] MEDS: Gabapentin 300 MG CAPSULE PO SCH ×2 (08:09→17:56)
[2019-04-25] MEDS: Aspirin Enteric Coated 81 MG Tablet PO SCH (08:09)
[2019-04-25] MEDS: *HR* Glimepiride 4 MG TABLET PO SCH ×2 (08:09→17:56)
[2019-04-25] MEDS: *HR* Metformin 500 MG TABLET PO SCH ×2 (08:09→17:56)
[2019-04-25] MEDS: hydroCHLOROthiazide 25 MG TABLET PO SCH (08:10)
[2019-04-25 09:04] LABS: Basophils # 0.1 K/mcL (0.0-0.2); Eosinophils # 0.2 K/mcL (0.0-0.6); Eosinophils % 2.5 %; Hematocrit 34.8 % (37.5-50.1); Hemoglobin 11.3 g/dL (12.9-16.9); Immature Granulocytes % 1.3 % (0-4); Lymphocytes # 2.1 K/mcL (0.6-4.6); Lymphocytes % 22.1 %; Mean Corpuscular HGB Conc 32.5 g/dL (31.6-35.5); Mean Corpuscular Hemoglobin 27.6 pg (28.0-33.3); Mean Corpuscular Volume 84.9 fL (83.0-100.0); Mean Platelet Volume 8.6 fL (9.4-12.4); Monocytes # 0.9 K/mcL (0.0-1.3); Neutrophils # 6.1 K/mcL (1.6-8.9); Platelet Count 302 K/mcL (140-400); Red Cell Distribution Width 12.6 % (11.5-14.5); Segmented Neutrophils % 64.1 %; White Blood Count 9.6 K/mcL (4.3-11.1)
[2019-04-25 09:32] LABS: BUN/Creatinine Ratio 20 (6-26); Blood Urea Nitrogen 12 mg/dL (6-20); Calcium 9.4 mg/dL (8.6-10.3); Carbon Dioxide 31 mEq/L (23-29); Chloride 97 mEq/L (98-107); Glucose 144 mg/dL (70-105); Osmolality,Calculated 282 (280-300); Potassium 3.9 mEq/L (3.5-5.1); Sodium 135 mEq/L (136-145); eGFR For African Americans > 60 (> 60); eGFR For Non-African Americans > 60 (> 60)
[2019-04-25] MEDS ORDERED: HYDROcodone BIT/Homatropine 5 MG TABLET PO PRN (10:40)
[2019-04-26] MEDS: Gabapentin 300 MG CAPSULE PO SCH ×4 (00:51→23:51)
[2019-04-26] MEDS: *HR* Metformin 500 MG TABLET PO SCH ×2 (07:58→17:08)
[2019-04-26] MEDS: *HR* Glimepiride 4 MG TABLET PO SCH ×2 (07:58→17:08)
[2019-04-26] MEDS: Aspirin Enteric Coated 81 MG Tablet PO SCH (07:58)
[2019-04-26] MEDS: hydroCHLOROthiazide 25 MG TABLET PO SCH (07:59)
[2019-04-26] MEDS: Ondansetron ODT 4 MG TAB.RAPDIS SL PRN (12:53)
[2019-04-26] MEDS: *HR* OxyCODONE Immed Rel 5 MG TABLET PO PRN ×2 (12:53→23:58)
[2019-04-26] MEDS: HYDROcodone BIT/Homatropine 5 MG TABLET PO PRN ×2 (14:57→20:14)
[2019-04-27] MEDS: *HR* OxyCODONE Immed Rel 5 MG TABLET PO PRN ×3 (08:08→17:34)
[2019-04-27] MEDS: *HR* Glimepiride 4 MG TABLET PO SCH ×2 (08:08→17:32)
[2019-04-27] MEDS: Aspirin Enteric Coated 81 MG Tablet PO SCH (08:08)
[2019-04-27] MEDS: Gabapentin 300 MG CAPSULE PO SCH ×2 (08:08→15:51)
[2019-04-27] MEDS: hydroCHLOROthiazide 25 MG TABLET PO SCH (08:08)
[2019-04-27] MEDS: *HR* Metformin 500 MG TABLET PO SCH ×2 (08:09→17:32)
[2019-04-27] MEDS: HYDROcodone BIT/Homatropine 5 MG TABLET PO PRN ×2 (15:51→20:09)
[2019-04-28] MEDS: Gabapentin 300 MG CAPSULE PO SCH ×3 (00:42→16:10)
[2019-04-28] MEDS: hydroCHLOROthiazide 25 MG TABLET PO SCH (07:24)
[2019-04-28] MEDS: Aspirin Enteric Coated 81 MG Tablet PO SCH (07:24)
[2019-04-28] MEDS: *HR* Glimepiride 4 MG TABLET PO SCH ×2 (07:24→16:10)
[2019-04-28] MEDS: *HR* Metformin 500 MG TABLET PO SCH ×2 (07:24→16:10)
[2019-04-28] MEDS: *HR* OxyCODONE Immed Rel 5 MG TABLET PO PRN ×2 (12:24→17:43)
[2019-04-28] MEDS: Simethicone 80 MG TAB.CHEW PO PRN (17:43)
[2019-04-28] MEDS: HYDROcodone BIT/Homatropine 5 MG TABLET PO PRN (20:54)
[2019-04-29] MEDS: Gabapentin 300 MG CAPSULE PO SCH ×4 (00:15→21:37)
[2019-04-29] MEDS: HYDROcodone BIT/Homatropine 5 MG TABLET PO PRN (05:27)
[2019-04-29] MEDS: Aspirin Enteric Coated 81 MG Tablet PO SCH (08:02)
[2019-04-29] MEDS: *HR* Metformin 500 MG TABLET PO SCH ×2 (08:02→15:33)
[2019-04-29] MEDS: hydroCHLOROthiazide 25 MG TABLET PO SCH (08:02)
[2019-04-29] MEDS: *HR* Glimepiride 4 MG TABLET PO SCH ×2 (08:02→15:33)
[2019-04-29] MEDS: *HR* OxyCODONE Immed Rel 5 MG TABLET PO PRN ×2 (13:19→21:37)
[2019-04-29] MEDS: Ondansetron ODT 4 MG TAB.RAPDIS SL PRN (15:31)
[2019-04-30] MEDS: *HR* Glimepiride 4 MG TABLET PO SCH ×2 (08:47→16:29)
[2019-04-30] MEDS: Gabapentin 300 MG CAPSULE PO SCH ×3 (08:47→23:10)
[2019-04-30] MEDS: Aspirin Enteric Coated 81 MG Tablet PO SCH (08:47)
[2019-04-30] MEDS: hydroCHLOROthiazide 25 MG TABLET PO SCH (08:47)
[2019-04-30] MEDS: *HR* Metformin 500 MG TABLET PO SCH ×2 (08:47→16:29)
[2019-04-30] MEDS: HYDROcodone BIT/Homatropine 5 MG TABLET PO PRN ×2 (08:50→16:59)
[2019-04-30] MEDS: Ondansetron ODT 4 MG TAB.RAPDIS SL PRN (17:16)
[2019-05-01] MEDS: HYDROcodone BIT/Homatropine 5 MG TABLET PO PRN (09:15)
[2019-05-01] MEDS: *HR* Metformin 500 MG TABLET PO SCH (09:16)
[2019-05-01] MEDS: Gabapentin 300 MG CAPSULE PO SCH (09:16)
[2019-05-01] MEDS: Aspirin Enteric Coated 81 MG Tablet PO SCH (09:16)
[2019-05-01] MEDS: hydroCHLOROthiazide 25 MG TABLET PO SCH (09:16)
[2019-05-01] MEDS: *HR* Glimepiride 4 MG TABLET PO SCH (09:16)
[2019-05-01 11:18] VITALS: BP 119/81
[2019-05-01] MEDS: *HR* OxyCODONE Immed Rel 5 MG TABLET PO PRN (11:25)
== END 2019-05-01 13:00 ==
LOC: 3NENU 14:53 → EMEROOARM 14:53 → 3NENU 20:21
PROVIDERS: ADMIT Family Medicine; ATTEND Orthopaedic Surgery Orthopaedic Surgery of the Spine